=== PATIENT | male | born 1985 ===

== ENCOUNTER 2022-09-09 21:56 | Inpatient (IN) ==
[2022-09-09] MEDS ORDERED: Naloxone 0.4 mg VIAL 0.4 mg/ml 1 ml VIAL IV PUSH ONE (22:02)
[2022-09-09] MEDS ORDERED: Naloxone 0.4 mg VIAL 0.4 mg/ml 1 ml VIAL ONE (22:02)
[2022-09-09] MEDS ORDERED: Naloxone 4 mg VIAL 0.4 MG/ML 10 ml VIAL (4 mg) ONE (22:06)
[2022-09-09] MEDS ORDERED: Naloxone 0.4 mg VIAL 0.4 mg/ml 1 ml VIAL IM ONE (22:42)
[2022-09-10 00:13] LABS: ABS Lymphocytes 2.3 10^3/ul (1.0-4.8); ABS Monocytes 0.6 10^3/ul (0-0.8); ABS Neutrophils 7.1 10^3/ul (1.5-7.7); Eosinophil % 0.3 %; Hematocrit 37 % (42-52); Hemoglobin 12.4 g/dL (14.0-18.0); Lymphocyte % 22.8 %; Mean Corpuscular HGB Conc 33 g/dL (31-36); Mean Corpuscular Hemoglobin 30 pg (27-31); Mean Corpuscular Volume 91 fL (80-94); Mean Platelet Volume 7.3 fL (7.4-10.4); Platelet Count 296 10^3/uL (150-450); Red Blood Count 4.09 10^6 /uL (4.18-5.48); Red Cell Distribution Width 14 % (10-15); White Blood Count 10.2 10^3/uL (3.5-10.8)
[2022-09-10 00:16] LABS: INR 1.02 (0.89-1.11)
[2022-09-10 01:46] LABS: Albumin 4.2 g/dL (3.2-5.2); Anion Gap 11 mmol/L (2-11); CO2 Carbon Dioxide 23 mmol/L (22-32); Calcium 9.4 mg/dL (8.6-10.3); Chloride 103 mmol/L (101-111); Magnesium 2.3 mg/dL (1.9-2.7); Potassium 3.9 mmol/L (3.5-5.0); Sodium 137 mmol/L (135-145)
[2022-09-10 01:53] LABS: ALT 20 U/L (7-52); AST 18 U/L (13-39); Acetaminophen < 15 mcg/mL; Albumin/Globulin Ratio 1.4 (1-3); Alcohol, S < 13 mg/dL (<13); Alkaline Phosphatase 71 U/L (35-149); Blood Urea Nitrogen 20 mg/dL (6-24); C Reactive Protein 2.84 mg/L (<8.01); Creatine Kinase 234 U/L (10-223); Globulin 3.1 g/dL (2-4); Glucose 96 mg/dL (70-100); Salicylate < 2.50 mg/dL (<30); Total Protein 7.3 g/dL (6.4-8.9); eGFR CKD-EPI 80.1 (>60)
[2022-09-10] MEDS ORDERED: Naloxone 0.4 mg VIAL 0.4 mg/ml 1 ml VIAL IV PUSH ONE ×2 (01:53→04:57)
[2022-09-10] MEDS ORDERED: Naloxone 0.4 mg VIAL 0.4 mg/ml 1 ml VIAL IV PUSH PRN ×2 (06:58→10:57)
[2022-09-10 09:46] LABS: Urine Appearance Turbid; Urine Bilirubin Negative (Negative); Urine Blood Negative (Negative); Urine Color Yellow; Urine Glucose Negative (Negative); Urine Ketones Negative (Negative); Urine Nitrite Negative (Negative); Urine Protein Negative (Negative); Urine Specific Gravity 1.019 (1.002-1.030); Urine Urobilinogen Negative (Negative)
[2022-09-10 10:16] LABS: Urine Benzodiazepine Screen Presumptive Positive (None Detect); Urine Cannabinoids Screen Presumptive Positive (None Detect); Urine Opiates Screen Presumptive Positive (None Detect)
[2022-09-10] MEDS ORDERED: D5W 1/2 NS 1000 ml BAG 1,000 ML IV SCH (11:00)
[2022-09-10] MEDS ORDERED: LORazepam 2 mg VIAL 1 ml IV PUSH ONE ×4 (11:30→18:56)
[2022-09-10] MEDS ORDERED: Folic Acid IV 1 MG in NS 0.9% 50 ML 50 ML IV ONE (12:00)
[2022-09-10] MEDS ORDERED: Thiamine IV 100 MG/ML VIAL (only for Bannana Bags !) IVPB SCH (12:00)
[2022-09-10] MEDS: Dexmedetomidine 1,000 MCG in NS 0.9% 250 ml 240 ML IV SCH (12:22)
[2022-09-10] MEDS ORDERED: D5LR 1000 ml BAG 1,000 ML IV SCH (13:00)
[2022-09-10] MEDS: cefTRIAXone 1 gm/50 mL D5W 1 GM/50 ML BAG IV SCH (14:53)
[2022-09-10] MEDS: Thiamine IV 100 MG in NS 0.9% 50 ML Q24H IV SCH (15:26)
[2022-09-10] MEDS ORDERED: Lorazepam PYXIS KEY PRN ×4 (16:00→18:56)
[2022-09-10] MEDS ORDERED: Lorazepam PYXIS KEY ONE ×2 (18:02→18:57)
[2022-09-10] MEDS ORDERED: LORazepam 2 mg VIAL 1 ml ONE ×2 (18:03→18:57)
[2022-09-11] MEDS ORDERED: LORazepam 2 mg VIAL 1 ml IV PUSH PRN (04:09)
[2022-09-11] MEDS ORDERED: Lorazepam PYXIS KEY PRN ×3 (04:09→15:03)
[2022-09-11] MEDS ORDERED: Lorazepam PYXIS KEY ONE (04:11)
[2022-09-11] MEDS ORDERED: LORazepam 2 mg VIAL 1 ml ONE (04:11)
[2022-09-11] MEDS: LORazepam 2 mg VIAL 1 ml IV PUSH PRN ×4 (04:20→22:00)
[2022-09-11] MEDS ORDERED: Haloperidol 5 mg/ml SDV IV/IM 5 MG/ML AMP IV SLOW PU ONE ×3 (04:37→22:22)
[2022-09-11] MEDS ORDERED: Haloperidol 5 mg/ml SDV IV/IM 5 MG/ML AMP ONE (04:38)
[2022-09-11 05:55] LABS: ABS Eosinophils 0.1 10^3/ul (0-0.6); ABS Lymphocytes 2.3 10^3/ul (1.0-4.8); ABS Monocytes 0.4 10^3/ul (0-0.8); ABS Neutrophils 4.1 10^3/ul (1.5-7.7); Eosinophil % 1.2 %; Hematocrit 36 % (42-52); Hemoglobin 11.8 g/dL (14.0-18.0); Lymphocyte % 32.7 %; Mean Corpuscular HGB Conc 33 g/dL (31-36); Mean Corpuscular Hemoglobin 30 pg (27-31); Mean Corpuscular Volume 92 fL (80-94); Mean Platelet Volume 7.9 fL (7.4-10.4); Nucleated Red Blood Cells % 0.1; Platelet Count 235 10^3/uL (150-450); Red Cell Distribution Width 14 % (10-15); White Blood Count 6.9 10^3/uL (3.5-10.8)
[2022-09-11 06:16] LABS: Calcium 9.2 mg/dL (8.6-10.3); Potassium 4.2 mmol/L (3.5-5.0); eGFR CKD-EPI 92.8 (>60)
[2022-09-11] MEDS: Thiamine IV 100 MG in NS 0.9% 50 ML Q24H IV SCH (11:20)
[2022-09-11] MEDS: cefTRIAXone 1 gm/50 mL D5W 1 GM/50 ML BAG IV SCH (12:11)
[2022-09-11] MEDS ORDERED: LORazepam 2 mg VIAL 1 ml IV PUSH ONE (15:03)
[2022-09-11] MEDS: Dexmedetomidine 1,000 MCG in NS 0.9% 250 ml 240 ML IV SCH (17:54)
[2022-09-12] MEDS: Dexmedetomidine 1,000 MCG in NS 0.9% 250 ml 240 ML IV SCH (04:04)
[2022-09-12] MEDS: LORazepam 2 mg VIAL 1 ml IV PUSH PRN (06:17)
[2022-09-12 08:51] VITALS: BP 110/85
[2022-09-12] MEDS ORDERED: Enoxaparin 40 MG/0.4 ML SYR SUBCUT SCH (09:00)
[2022-09-13] MEDS ORDERED: cefTRIAXone 1 gm/50 mL D5W 1 GM/50 ML BAG IV SCH (11:00)
== END 2022-09-12 10:30 | disposition left against medical advice (07) | DRG 816 ==
LOC: ED 21:56 → EDHOLD 09-10 06:02 → ICU 09-10 09:02
PROVIDERS: ADMIT Internal Medicine; ATTEND Internal Medicine